=== PATIENT | female | born 1950 | race Caucasian/White ===

== ENCOUNTER → 2016-12-12 | Outpatient (CLI) | payer MEDICARE, OTHER ==
[~2016-12-12] MED LIST: AMLODIPINE PO; ATORVASTATIN CA20 MG PO; BENA PO; BENADRYL ALLERG25 M5 PO; CLARITIN10 MG PO; DARVOCET N 1001 TAB PO; DAYPRO600 M1 PO; DULER200; DULER200 INH; FLEXERIL10 MG PO; FLEXERIL5 MG PO; HYDROCODONE BIT1 T11 PO; LIDOCAINE HCL100 M1 MM; LIPITOR20 MG PO; MASON NATURAL1200 MG PO; MOTRIN800 MG PO; Motrin,Rufen800 MG PO; NAPROSYN500 MG PO; PENICILLIN VK500 MG PO; PEPCID20 MG PO; PREDNICOT20 MG PO; PRILOSEC20 M1 PO; PRILOSEC40 MG PO; RITE AID CALCI600 MG PO; ROBAXIN750 MG PO; SYNTHROID,LEVO75 MCG PO; THYROID MED PO; TYLENOL650 M1 PO; ULTRAM50 MG PO; ZITHROMAX Z PA250 MG PO
[2016-12-12 08:48] LABS: ALBUMIN 3.9 gm/dl (3.1-4.5); BILIRUBIN, DIRECT < 0.1 mg/dL (0.0-0.2); BUN 14 mg/dl (7-24); CARBON DIOXIDE 26 mmol/L (21-32); CHLORIDE 110 mmol/L (98-107); CHOLESTEROL 187 mg/dL (<200); EST GLOM FILT AFRICAN AMERICAN > 60 ml/min; GLUCOSE 80 mg/dL (65-99); SGOT/AST 17 IU/L (3-35); SGPT/ALT 22 U/L (12-78); SODIUM 144 mmol/L (136-145); TRIGLYCERIDES 111 mg/dl (<150); VLDL CHOLESTEROL 22 mg/dL (6-40)
[2016-12-12 08:56] LABS: ALKALINE PHOSPHATASE 106 U/L (45-117); BILIRUBIN, TOTAL 0.4 mg/dl (0.2-1.0); FREE T4 1.12 ng/dl (0.76-1.46); HDL CHOLESTEROL 68 mg/dl (40-60); LDL CHOLESTEROL 97 mg/dL (9-159); TOTAL PROTEIN 7.5 gm/dL (6.4-8.2)
[2016-12-12 08:59] LABS: HEMOGLOBIN A1c 5.9 % (4.8-5.6)
== END | disposition home or self-care (01) ==
LOC: LAB 07:55
PROVIDERS: Internal Medicine
DX: I10 Essential (primary) hypertension (principal); R73.01 Impaired fasting glucose; E03.8 Other specified hypothyroidism; E78.4 Other hyperlipidemia

== ENCOUNTER → 2017-01-30 | Outpatient (CLI) | payer MEDICARE, OTHER | END | disposition home or self-care (01) | LOC: MAMMO 01-16 10:00 | DX: Z12.31 Encounter for screening mammogram for malignant neoplasm of breast (principal); N63 Unspecified lump in breast ==

== ENCOUNTER → 2017-03-26 | Outpatient (CLI) | payer MEDICARE, OTHER ==
[2017-03-26 07:38] LABS: FREE T4 1.51 ng/dl (0.76-1.46)
[2017-03-26 07:45] LABS: THYROID STIM HORMONE (HS) 0.917 uIU/ml (0.358-4.75)
== END | disposition home or self-care (01) ==
LOC: LAB 06:55
PROVIDERS: Internal Medicine
DX: E03.8 Other specified hypothyroidism (principal)

== ENCOUNTER → 2017-07-02 | Outpatient (CLI) | payer MEDICARE, OTHER ==
[2017-07-02 11:10] LABS: ALBUMIN 3.7 gm/dl (3.1-4.5); BILIRUBIN, DIRECT < 0.1 mg/dL (0.0-0.2); BUN 13 mg/dl (7-24); CHLORIDE 109 mmol/L (98-107); CHOLESTEROL 206 mg/dL (<200); CREATININE 0.74 mg/dL (0.55-1.02); SGOT/AST 18 IU/L (3-35); SGPT/ALT 23 U/L (12-78); SODIUM 141 mmol/L (136-145); TOTAL PROTEIN 7.3 gm/dL (6.4-8.2); TRIGLYCERIDES 114 mg/dl (<150); VLDL CHOLESTEROL 23 mg/dL (6-40)
[2017-07-02 11:16] LABS: ALKALINE PHOSPHATASE 123 U/L (45-117); FREE T4 1.18 ng/dl (0.76-1.46); HDL CHOLESTEROL 52 mg/dl (40-60); LDL CHOLESTEROL 131 mg/dL (9-159)
== END | disposition home or self-care (01) ==
LOC: LAB 09:54
PROVIDERS: Internal Medicine
DX: E78.4 Other hyperlipidemia (principal); E03.8 Other specified hypothyroidism; R73.02 Impaired glucose tolerance (oral); I10 Essential (primary) hypertension; E55.9 Vitamin D deficiency, unspecified; Z79.1 Long term (current) use of non-steroidal anti-inflammatories (NSAID)

== ENCOUNTER → 2017-12-01 | Outpatient (CLI) | payer MEDICARE, OTHER ==
[2017-12-01 09:12] LABS: ALBUMIN 3.7 gm/dl (3.1-4.5); ALKALINE PHOSPHATASE 112 U/L (45-117); BILIRUBIN, DIRECT < 0.1 mg/dL (0.0-0.2); BUN 11 mg/dl (7-24); CHLORIDE 109 mmol/L (98-107); CHOLESTEROL 208 mg/dL (<200); CREATININE 0.73 mg/dL (0.55-1.02); FREE T4 1.16 ng/dl (0.76-1.46); HDL CHOLESTEROL 53 mg/dl (40-60); LDL CHOLESTEROL 137 mg/dL (9-159); POTASSIUM 3.7 mmol/L (3.5-5.1); SGOT/AST 18 IU/L (3-35); SGPT/ALT 23 U/L (12-78); SODIUM 142 mmol/L (136-145); TOTAL PROTEIN 7.2 gm/dL (6.4-8.2); TRIGLYCERIDES 88 mg/dl (<150); VLDL CHOLESTEROL 18 mg/dL (6-40)
== END | disposition home or self-care (01) ==
LOC: LAB 08:10
PROVIDERS: Internal Medicine
DX: E78.4 Other hyperlipidemia (principal); I10 Essential (primary) hypertension; E03.8 Other specified hypothyroidism; R73.02 Impaired glucose tolerance (oral); E55.9 Vitamin D deficiency, unspecified

== ENCOUNTER → 2018-01-19 | Outpatient (CLI) | payer MEDICARE, OTHER | END | disposition home or self-care (01) | LOC: RAD 08:19 | DX: M54.5 Low back pain (principal); G89.29 Other chronic pain; M54.6 Pain in thoracic spine; V89.2XXD Person injured in unspecified motor-vehicle accident, traffic, subsequent encounter ==

== ENCOUNTER → 2018-01-28 | Outpatient (CLI) | payer MEDICARE, OTHER | END | disposition home or self-care (01) | LOC: MRI 10:00 | DX: M51.24 Other intervertebral disc displacement, thoracic region (principal) ==

== ENCOUNTER → 2020-12-13 | Outpatient (CLI) | payer MEDICARE, OTHER ==
[2020-12-13 08:41] LABS: BASO # 0.1 10*3/uL (0.0-0.1); BASO % 1.5 % (0.0-1.0); EOS # 0.3 10*3/uL (0.0-0.4); EOS % 4.6 % (1.0-4.0); HEMATOCRIT 39.6 % (37.0-47.0); LYMPH # 1.8 10*3/uL (1.3-4.4); LYMPH % 26.8 % (27.0-41.0); MEAN CELL VOLUME 80.5 fl (81.0-99.0); MEAN CORPUSCULAR HGB CONC 29.8 g/dl (33.0-37.0); MEAN PLATELET VOLUME 9.7 fl (9.6-12.3); MONO # 0.7 10*3/uL (0.1-1.0); MONO % 10.3 % (3.0-9.0); NEUT # 3.7 10*3/uL (2.3-7.9); NEUT % 56.6 % (47.0-73.0); PLATELET COUNT AUTOMATED 430 10*3/uL (130-400); RED BLOOD COUNT 4.92 10*6/uL (4.10-5.10); RED CELL DISTRI WIDTH 15.1 % (0-14.5); WHITE BLOOD COUNT 6.5 10*3/uL (4.8-10.8)
[2020-12-13 09:22] LABS: ALBUMIN 3.5 gm/dl (3.1-4.5); ALKALINE PHOSPHATASE 136 U/L (45-117); BUN 9 mg/dl (7-24); CHLORIDE 111 mmol/L (98-107); CHOLESTEROL 149 mg/dL (<200); CREATININE 0.67 mg/dL (0.55-1.02); HDL CHOLESTEROL 51 mg/dl (40-60); LDL CHOLESTEROL 74 mg/dL (9-159); POTASSIUM 3.5 mmol/L (3.5-5.1); SGOT/AST 11 IU/L (3-35); SGPT/ALT 17 U/L (12-78); SODIUM 142 mmol/L (136-145); TOTAL PROTEIN 7.3 gm/dL (6.4-8.2); TRIGLYCERIDES 118 mg/dl (<150); VLDL CHOLESTEROL 24 mg/dL (6-40)
== END | disposition home or self-care (01) ==
LOC: LAB 08:06
PROVIDERS: ATTEND Nurse Practitioner Family
DX: I10 Essential (primary) hypertension (principal); E03.9 Hypothyroidism, unspecified; E78.5 Hyperlipidemia, unspecified; Z12.31 Encounter for screening mammogram for malignant neoplasm of breast

== ENCOUNTER → 2021-03-05 | Outpatient (CLI) | payer MEDICARE, OTHER | END | disposition home or self-care (01) | LOC: MAMMO 09:21 | PROVIDERS: ATTEND Nurse Practitioner Family | DX: Z12.31 Encounter for screening mammogram for malignant neoplasm of breast (principal); N63.21 Unspecified lump in the left breast, upper outer quadrant ==

== ENCOUNTER → 2021-06-18 | Outpatient (CLI) | payer MEDICARE, OTHER | END | disposition home or self-care (01) | LOC: RAD 09:38 | PROVIDERS: ATTEND Nurse Practitioner Family | DX: J18.9 Pneumonia, unspecified organism (principal); R11.0 Nausea ==

== ENCOUNTER → 2021-09-21 | Outpatient (CLI) | payer MEDICARE, OTHER ==
[2021-09-21 08:11] LABS: BASO # 0.1 10*3/uL (0.0-0.1); BASO % 1.4 % (0.0-1.0); EOS # 0.3 10*3/uL (0.0-0.4); EOS % 4.5 % (1.0-4.0); HEMATOCRIT 36.5 % (37.0-47.0); LYMPH # 2.4 10*3/uL (1.3-4.4); MEAN CELL VOLUME 77.2 fl (81.0-99.0); MEAN CORPUSCULAR HGB 23.5 pg (27.0-31.0); MEAN CORPUSCULAR HGB CONC 30.4 g/dl (33.0-37.0); MEAN PLATELET VOLUME 9.1 fl (9.6-12.3); MONO # 0.5 10*3/uL (0.1-1.0); MONO % 9.1 % (3.0-9.0); NEUT # 2.3 10*3/uL (2.3-7.9); NEUT % 41.6 % (47.0-73.0); PLATELET COUNT AUTOMATED 433 10*3/uL (130-400); RED BLOOD COUNT 4.73 10*6/uL (4.10-5.10); RED CELL DISTRI WIDTH 14.6 % (0-14.5); WHITE BLOOD COUNT 5.6 10*3/uL (4.8-10.8)
[2021-09-21 08:43] LABS: ALBUMIN 3.3 gm/dl (3.1-4.5); ALKALINE PHOSPHATASE 144 U/L (45-117); BUN 11 mg/dl (7-24); CHLORIDE 110 mmol/L (98-107); CHOLESTEROL 202 mg/dL (<200); CREATININE 0.74 mg/dL (0.55-1.02); LDL CHOLESTEROL 125 mg/dL (9-159); POTASSIUM 3.8 mmol/L (3.5-5.1); SGOT/AST 15 IU/L (3-35); SGPT/ALT 18 U/L (12-78); SODIUM 141 mmol/L (136-145); TOTAL PROTEIN 7.3 gm/dL (6.4-8.2); TRIGLYCERIDES 196 mg/dl (<150)
== END | disposition home or self-care (01) ==
LOC: LAB 07:57
PROVIDERS: ATTEND Nurse Practitioner Family
DX: I10 Essential (primary) hypertension (principal); J18.9 Pneumonia, unspecified organism; E78.5 Hyperlipidemia, unspecified; E03.9 Hypothyroidism, unspecified

== ENCOUNTER → 2022-04-18 | Outpatient (CLI) | payer MEDICARE, OTHER | END | disposition home or self-care (01) | LOC: RAD 09:55 | PROVIDERS: ATTEND Nurse Practitioner Family | DX: M47.26 Other spondylosis with radiculopathy, lumbar region (principal); M25.78 Osteophyte, vertebrae ==

== ENCOUNTER → 2022-05-08 | Outpatient (CLI) | payer MEDICARE, OTHER ==
[2022-05-08 09:02] LABS: BASO # 0.1 10*3/uL (0.0-0.1); BASO % 1.5 % (0.0-1.0); EOS # 0.2 10*3/uL (0.0-0.4); EOS % 3.2 % (1.0-4.0); HEMATOCRIT 38.2 % (37.0-47.0); LYMPH # 1.8 10*3/uL (1.3-4.4); LYMPH % 26.2 % (27.0-41.0); MEAN CELL VOLUME 80.4 fl (81.0-99.0); MEAN CORPUSCULAR HGB 24.4 pg (27.0-31.0); MEAN CORPUSCULAR HGB CONC 30.4 g/dl (33.0-37.0); MEAN PLATELET VOLUME 8.8 fl (9.6-12.3); MONO # 0.7 10*3/uL (0.1-1.0); NEUT % 58.8 % (47.0-73.0); PLATELET COUNT AUTOMATED 516 10*3/uL (130-400); RED BLOOD COUNT 4.75 10*6/uL (4.10-5.10); RED CELL DISTRI WIDTH 15.4 % (0-14.5); WHITE BLOOD COUNT 6.9 10*3/uL (4.8-10.8)
[2022-05-08 09:18] LABS: ALKALINE PHOSPHATASE 172 U/L (45-117); BUN 15 mg/dl (7-24); CHLORIDE 109 mmol/L (98-107); CHOLESTEROL 145 mg/dL (<200); CREATININE 0.72 mg/dL (0.55-1.02); POTASSIUM 4.3 mmol/L (3.5-5.1); SGOT/AST 15 IU/L (3-35); SGPT/ALT 12 U/L (12-78); SODIUM 141 mmol/L (136-145); TOTAL PROTEIN 7.8 gm/dL (6.4-8.2); TRIGLYCERIDES 85 mg/dl (<150)
[2022-05-08 09:19] LABS: LDL CHOLESTEROL 92 mg/dL (9-159)
== END | disposition home or self-care (01) ==
LOC: LAB 08:44
PROVIDERS: ATTEND Nurse Practitioner Family
DX: I10 Essential (primary) hypertension (principal); E03.9 Hypothyroidism, unspecified; E78.5 Hyperlipidemia, unspecified; D64.9 Anemia, unspecified

== ENCOUNTER → 2022-06-04 | Outpatient (CLI) | payer MEDICARE, OTHER | END | disposition home or self-care (01) | LOC: CT 10:00 | PROVIDERS: ATTEND Nurse Practitioner Family | DX: N28.9 Disorder of kidney and ureter, unspecified (principal); K76.0 Fatty (change of) liver, not elsewhere classified; K44.9 Diaphragmatic hernia without obstruction or gangrene; N28.1 Cyst of kidney, acquired; M89.9 Disorder of bone, unspecified ==

== ENCOUNTER → 2022-11-28 | Outpatient (CLI) | payer MEDICARE, OTHER ==
[2022-11-28 11:01] LABS: BASO # 0.1 10*3/uL (0.0-0.1); BASO % 1.3 % (0.0-1.0); EOS # 0.2 10*3/uL (0.0-0.4); EOS % 4.1 % (1.0-4.0); LYMPH # 1.9 10*3/uL (1.3-4.4); LYMPH % 48.5 % (27.0-41.0); MEAN CELL VOLUME 84.4 fl (81.0-99.0); MEAN CORPUSCULAR HGB 25.9 pg (27.0-31.0); MEAN CORPUSCULAR HGB CONC 30.8 g/dl (33.0-37.0); MEAN PLATELET VOLUME 9.3 fl (9.6-12.3); MONO # 0.4 10*3/uL (0.1-1.0); NEUT # 1.4 10*3/uL (2.3-7.9); NEUT % 36.8 % (47.0-73.0); PLATELET COUNT AUTOMATED 421 10*3/uL (130-400); RED BLOOD COUNT 4.74 10*6/uL (4.10-5.10); RED CELL DISTRI WIDTH 21.7 % (0-14.5); WHITE BLOOD COUNT 3.9 10*3/uL (4.8-10.8)
[2022-11-28 11:28] LABS: ALKALINE PHOSPHATASE 138 U/L (46-116); BUN 10 mg/dl (9-23); CHLORIDE 109 mmol/L (98-107); CHOLESTEROL 121 mg/dL (<200); LDL CHOLESTEROL 71 mg/dL (9-159); SGPT/ALT 25 U/L (10-49); THYROID STIM HORMONE (HS) 0.366 uIU/ml (0.550-4.780); TOTAL PROTEIN 7.5 gm/dL (6.0-8.0); TRIGLYCERIDES 90 mg/dl (<150)
== END | disposition home or self-care (01) ==
LOC: LAB 10:20
PROVIDERS: ATTEND Nurse Practitioner Family
DX: E78.5 Hyperlipidemia, unspecified (principal); E61.1 Iron deficiency; E03.9 Hypothyroidism, unspecified; I10 Essential (primary) hypertension; D64.9 Anemia, unspecified

== ENCOUNTER → 2023-01-07 | Outpatient (CLI) | payer MEDICARE, OTHER | END | disposition home or self-care (01) | LOC: LAB 09:25 | PROVIDERS: ATTEND Nurse Practitioner Family | DX: E78.5 Hyperlipidemia, unspecified (principal); E03.9 Hypothyroidism, unspecified; H92.01 Otalgia, right ear; R79.89 Other specified abnormal findings of blood chemistry ==

== ENCOUNTER → 2023-02-17 | Outpatient (CLI) | payer MEDICARE ==
[2023-02-17 10:43] LABS: BASO # 0.1 10*3/uL (0.0-0.1); BASO % 0.7 % (0.0-1.0); EOS # 0.3 10*3/uL (0.0-0.4); EOS % 3.7 % (1.0-4.0); HEMATOCRIT 35.4 % (37.0-47.0); LYMPH # 1.6 10*3/uL (1.3-4.4); LYMPH % 22.4 % (27.0-41.0); MEAN CELL VOLUME 92.2 fl (81.0-99.0); MEAN CORPUSCULAR HGB 29.4 pg (27.0-31.0); MEAN CORPUSCULAR HGB CONC 31.9 g/dl (33.0-37.0); MEAN PLATELET VOLUME 9.4 fl (9.6-12.3); MONO # 0.6 10*3/uL (0.1-1.0); MONO % 8.1 % (3.0-9.0); NEUT # 4.5 10*3/uL (2.3-7.9); NEUT % 64.7 % (47.0-73.0); PLATELET COUNT AUTOMATED 497 10*3/uL (130-400); RED BLOOD COUNT 3.84 10*6/uL (4.10-5.10); RED CELL DISTRI WIDTH 16.7 % (0-14.5)
[2023-02-17 11:13] LABS: ALKALINE PHOSPHATASE 94 U/L (46-116); BUN 11 mg/dl (9-23); CHLORIDE 106 mmol/L (98-107); CHOLESTEROL 119 mg/dL (<200); LDL CHOLESTEROL 69 mg/dL (9-159); POTASSIUM 3.8 mmol/L (3.4-5.1); SGPT/ALT 10 U/L (10-49); THYROID STIM HORMONE (HS) 11.868 uIU/ml (0.550-4.780); TOTAL PROTEIN 7.3 gm/dL (6.0-8.0); TRIGLYCERIDES 89 mg/dl (<150)
== END | disposition home or self-care (01) ==
LOC: LAB 10:04
PROVIDERS: ATTEND Nurse Practitioner Family
DX: E03.9 Hypothyroidism, unspecified (principal); E78.5 Hyperlipidemia, unspecified; R79.89 Other specified abnormal findings of blood chemistry; H92.01 Otalgia, right ear

== ENCOUNTER → 2023-07-22 | Outpatient (CLI) | payer MEDICARE, OTHER ==
[2023-07-22 10:07] LABS: BASO # 0.1 10*3/uL (0.0-0.1); BASO % 1.4 % (0.0-1.0); EOS # 0.1 10*3/uL (0.0-0.4); HEMATOCRIT 44.5 % (37.0-47.0); LYMPH # 2.2 10*3/uL (1.3-4.4); LYMPH % 51.7 % (27.0-41.0); MEAN CELL VOLUME 87.3 fl (81.0-99.0); MEAN CORPUSCULAR HGB 27.8 pg (27.0-31.0); MEAN CORPUSCULAR HGB CONC 31.9 g/dl (33.0-37.0); MONO # 0.2 10*3/uL (0.1-1.0); MONO % 5.5 % (3.0-9.0); NEUT # 1.7 10*3/uL (2.3-7.9); NEUT % 38.4 % (47.0-73.0); PLATELET COUNT AUTOMATED 320 10*3/uL (130-400); RED CELL DISTRI WIDTH 16.4 % (0-14.5); WHITE BLOOD COUNT 4.3 10*3/uL (4.8-10.8)
[2023-07-22 10:35] LABS: ALKALINE PHOSPHATASE 84 U/L (46-116); BUN 5 mg/dl (9-23); CHLORIDE 107 mmol/L (98-107); CHOLESTEROL 233 mg/dL (<200); LDL CHOLESTEROL 157 mg/dL (9-159); POTASSIUM 4.7 mmol/L (3.4-5.1); SGPT/ALT 30 U/L (5-49); TOTAL PROTEIN 7.5 gm/dL (6.0-8.0); TRIGLYCERIDES 122 mg/dl (<150)
[2023-07-22 10:46] LABS: VITAMIN D, 25-HYDROXY 49.4 ng/mL (30-100)
[2023-07-22 10:50] LABS: FREE T4 1.12 ng/dl (0.89-1.76)
== END | disposition home or self-care (01) ==
LOC: LAB 09:39
PROVIDERS: ATTEND Nurse Practitioner Primary Care
DX: E78.5 Hyperlipidemia, unspecified (principal); I10 Essential (primary) hypertension; E03.9 Hypothyroidism, unspecified; E55.9 Vitamin D deficiency, unspecified; E61.1 Iron deficiency

== ENCOUNTER → 2023-11-19 | Outpatient (CLI) | payer MEDICARE, OTHER ==
[2023-11-19 12:15] LABS: BASO % 0.7 % (0.0-1.0); EOS # 0.1 10*3/uL (0.0-0.4); EOS % 2.4 % (1.0-4.0); HEMATOCRIT 38.4 % (37.0-47.0); LYMPH # 2.1 10*3/uL (1.3-4.4); LYMPH % 50.7 % (27.0-41.0); MEAN CELL VOLUME 101.1 fl (81.0-99.0); MEAN CORPUSCULAR HGB 32.6 pg (27.0-31.0); MEAN CORPUSCULAR HGB CONC 32.3 g/dl (33.0-37.0); MEAN PLATELET VOLUME 9.3 fl (9.6-12.3); MONO # 0.3 10*3/uL (0.1-1.0); MONO % 5.9 % (3.0-9.0); NEUT # 1.7 10*3/uL (2.3-7.9); NEUT % 40.1 % (47.0-73.0); PLATELET COUNT AUTOMATED 305 10*3/uL (130-400); RED CELL DISTRI WIDTH 15.9 % (0-14.5); WHITE BLOOD COUNT 4.2 10*3/uL (4.8-10.8)
[2023-11-19 12:44] LABS: ALKALINE PHOSPHATASE 45 U/L (46-116); BUN 7 mg/dl (9-23); CHLORIDE 107 mmol/L (98-107); POTASSIUM 3.3 mmol/L (3.4-5.1); SGPT/ALT 25 U/L (5-49); TOTAL PROTEIN 6.3 gm/dL (6.0-8.0)
[2023-11-19 13:07] LABS: FREE T4 0.98 ng/dl (0.89-1.76)
== END ==
LOC: LAB 11:51
PROVIDERS: ATTEND Nurse Practitioner Primary Care
DX: N28.89 Other specified disorders of kidney and ureter (principal); R07.81 Pleurodynia; E03.9 Hypothyroidism, unspecified; I10 Essential (primary) hypertension; W19.XXXA Unspecified fall, initial encounter; Y93.89 Activity, other specified; Y92.89 Other specified places as the place of occurrence of the external cause; Y99.8 Other external cause status

== ENCOUNTER → 2024-03-29 | Day surgery (SDC) | payer MEDICARE, OTHER ==
[~2024-03-29] VITALS: Ht 152.4 cm; Wt 40.4 kg
[~2024-03-29] MED LIST changes: +Lactated Ringer's Solution 1,000 ML IV ONE; +Lactated Ringer's Solution 1,000 ML IV SCH; +Lidocaine Hydrochloride 2% 10 ML AMP IM ONE; +PROPOFOL 200 MG/20 ML VIAL IV ONE
[2024-03-29 06:42] VITALS: BP 126/80
[2024-03-29 07:47] VITALS: BP 138/83
[2024-03-29 08:02] VITALS: BP 132/79
[2024-03-29 08:17] VITALS: BP 138/79
== END | disposition home or self-care (01) ==
LOC: SDC 03-25 08:00
PROVIDERS: ATTEND Surgery
DX: R13.10 Dysphagia, unspecified (principal); K21.9 Gastro-esophageal reflux disease without esophagitis; K29.50 Unspecified chronic gastritis without bleeding; B96.81 Helicobacter pylori [H. pylori] as the cause of diseases classified elsewhere; K22.89 Other specified disease of esophagus; K44.9 Diaphragmatic hernia without obstruction or gangrene; I10 Essential (primary) hypertension; J45.909 Unspecified asthma, uncomplicated; E03.9 Hypothyroidism, unspecified; E78.5 Hyperlipidemia, unspecified; Z90.89 Acquired absence of other organs; Z90.711 Acquired absence of uterus with remaining cervical stump; Z90.49 Acquired absence of other specified parts of digestive tract; Z98.890 Other specified postprocedural states; Z79.899 Other long term (current) drug therapy

== ENCOUNTER → 2024-05-04 | Outpatient (CLI) | payer MEDICARE, OTHER ==
[~2024-05-04] MED LIST changes: -Lactated Ringer's Solution 1,000 ML IV ONE; -Lactated Ringer's Solution 1,000 ML IV SCH; -Lidocaine Hydrochloride 2% 10 ML AMP IM ONE; -PROPOFOL 200 MG/20 ML VIAL IV ONE; +Regadenoson 0.4 MG/5 ML SYR IV ONE
== END | disposition home or self-care (01) ==
LOC: CARD 02:09
PROVIDERS: ATTEND Internal Medicine Cardiovascular Disease
DX: I34.0 Nonrheumatic mitral (valve) insufficiency (principal); R94.31 Abnormal electrocardiogram [ECG] [EKG]; R79.89 Other specified abnormal findings of blood chemistry

== ENCOUNTER → 2024-07-01 | Outpatient (CLI) | payer MEDICARE, OTHER ==
[~2024-07-01] MED LIST changes: -Regadenoson 0.4 MG/5 ML SYR IV ONE
== END | disposition home or self-care (01) ==
LOC: WOUNDCARE 00:36
PROVIDERS: ATTEND Nurse Practitioner Family
DX: L02.212 Cutaneous abscess of back [any part, except buttock and flank] (principal); S31.010A Laceration without foreign body of lower back and pelvis without penetration into retroperitoneum, initial encounter; R23.8 Other skin changes; I10 Essential (primary) hypertension; K21.9 Gastro-esophageal reflux disease without esophagitis; E03.9 Hypothyroidism, unspecified; J45.909 Unspecified asthma, uncomplicated; Z85.528 Personal history of other malignant neoplasm of kidney; Z90.49 Acquired absence of other specified parts of digestive tract; Z90.89 Acquired absence of other organs; Z90.721 Acquired absence of ovaries, unilateral; Z79.82 Long term (current) use of aspirin; Z79.899 Other long term (current) drug therapy; X58.XXXD Exposure to other specified factors, subsequent encounter; Y93.89 Activity, other specified; Y92.89 Other specified places as the place of occurrence of the external cause; Y99.8 Other external cause status

== ENCOUNTER → 2024-08-25 | Outpatient (CLI) | payer MEDICARE, OTHER | END | disposition home or self-care (01) | LOC: LAB 17:45 | PROVIDERS: ATTEND Nurse Practitioner Family | DX: T14.8XXA Other injury of unspecified body region, initial encounter (principal); X58.XXXA Exposure to other specified factors, initial encounter ==

== ENCOUNTER → 2024-12-08 | Outpatient (CLI) | payer MEDICARE, OTHER ==
[2024-12-08 09:38] LABS: BASO # 0.1 10*3/uL (0.0-0.1); BASO % 1.2 % (0.0-1.0); EOS # 0.2 10*3/uL (0.0-0.4); EOS % 3.3 % (1.0-4.0); HEMATOCRIT 39.7 % (37.0-47.0); MEAN CORPUSCULAR HGB 28.3 pg (27.0-31.0); MEAN CORPUSCULAR HGB CONC 31.5 g/dl (33.0-37.0); MEAN PLATELET VOLUME 8.8 fl (9.6-12.3); MONO # 0.5 10*3/uL (0.1-1.0); MONO % 8.8 % (3.0-9.0); NEUT # 2.8 10*3/uL (2.3-7.9); PLATELET COUNT AUTOMATED 370 10*3/uL (130-400); RED BLOOD COUNT 4.41 10*6/uL (4.10-5.10); RED CELL DISTRI WIDTH 19.6 % (0-14.5)
[2024-12-08 10:07] LABS: ALKALINE PHOSPHATASE 75 U/L (46-116); BUN 7 mg/dl (9-23); CHLORIDE 106 mmol/L (98-107); CHOLESTEROL 259 mg/dL (<200); LDL CHOLESTEROL 176 mg/dL (9-159); POTASSIUM 3.8 mmol/L (3.4-5.1); SGPT/ALT 14 U/L (5-49); TOTAL PROTEIN 7.5 gm/dL (6.0-8.0); TRIGLYCERIDES 110 mg/dl (<150)
[2024-12-08 10:25] LABS: FREE T4 1.41 ng/dl (0.89-1.76)
== END | disposition home or self-care (01) ==
LOC: LAB 09:19
PROVIDERS: ATTEND Nurse Practitioner Primary Care
DX: E03.9 Hypothyroidism, unspecified (principal); E78.5 Hyperlipidemia, unspecified; E55.9 Vitamin D deficiency, unspecified

== ENCOUNTER → 2025-03-30 | Outpatient (CLI) | payer MEDICARE, OTHER ==
[2025-03-30 09:50] LABS: LDL CHOLESTEROL 116.0 mg/dL (9-159)
[2025-03-30 10:51] LABS: FREE T4 1.44 ng/dl (0.89-1.76)
== END ==
LOC: LAB 08:59
PROVIDERS: ATTEND Nurse Practitioner Primary Care
DX: E03.9 Hypothyroidism, unspecified (principal); E78.5 Hyperlipidemia, unspecified

== ENCOUNTER → 2025-07-05 | Outpatient (CLI) | payer MEDICARE, OTHER ==
[2025-07-05 09:59] LABS: BASO # 0.1 10*3/uL (0.0-0.1); BASO % 1.2 % (0.0-1.0); EOS # 0.2 10*3/uL (0.0-0.4); EOS % 3.5 % (1.0-4.0); MEAN CELL VOLUME 88.8 fl (81.0-99.0); MEAN CORPUSCULAR HGB 27.2 pg (27.0-31.0); MEAN PLATELET VOLUME 8.8 fl (9.6-12.3); MONO # 0.4 10*3/uL (0.1-1.0); MONO % 8.4 % (3.0-9.0); NEUT # 2.4 10*3/uL (2.3-7.9); NEUT % 46.7 % (47.0-73.0); NUCLEATED RED BLOOD CELL 0.0 % (0.0-0.0); NUCLEATED RED BLOOD CELL 0.0 10*3/uL (0.0-0.0); PLATELET COUNT AUTOMATED 377 10*3/uL (130-400); RED CELL DISTRI WIDTH 20.7 % (0-14.5)
[2025-07-05 10:54] LABS: BUN 6 mg/dl (9-23); LDL CHOLESTEROL 139 mg/dL (9-159); SGPT/ALT 28 U/L (5-49)
[2025-07-05 10:58] LABS: VITAMIN D, 25-HYDROXY 70.3 ng/mL (30-100)
[2025-07-05 11:16] LABS: FREE T4 1.35 ng/dl (0.89-1.76)
== END | disposition home or self-care (01) ==
LOC: LAB 09:26
PROVIDERS: ATTEND Nurse Practitioner Primary Care
DX: E55.9 Vitamin D deficiency, unspecified (principal); I10 Essential (primary) hypertension; E03.9 Hypothyroidism, unspecified; E61.1 Iron deficiency